=== PATIENT | female | born 1960 | race Caucasian/White ===

== ENCOUNTER 2016-08-22 17:19 | Emergency (ER) | payer MEDICARE, MEDICAID ==
[2016-08-22 17:56] VITALS: BP 98/66
--- NOTE | 2016-08-22 18:16 | UC ---
Ear Complaint HPI - HPI Summary HPI Summary: 55 yo female with a 4 days hx of bilateral ear pressure and pain as well as sinus pressure and pain no f/c no cp or sob no head ache decreased hearing - History of Current Complaint Chief Complaint: UCGeneralIllness Stated Complaint: SORE THROAT/EARS Time Seen by Provider: 08/22/16 17:49 Hx Obtained From: Patient Hx Last Menstrual Period: NA Onset/Duration: Sudden Onset, Gradual Onset Severity Initially: Mild Severity Currently: Mild Pain Intensity: 3 Pain Scale Used: 0-10 Numeric Associated Signs/Symptoms: Positive: Hearing Loss, URI Symptoms - Allergies/Home Medications Allergies/Adverse Reactions: Allergies Allergy/AdvReac Type Severity Reaction Status Date / Time Shellfish Allergy Allergy Mild "Itchy Verified 08/22/16 17:56 Throat" Clavulanic Acid AdvReac Severe "Severe Verified 08/22/16 17:56 [From Augmentin] Stomach Pain" PMH/Surg Hx/FS Hx/Imm Hx Previously Healthy: Yes Cardiovascular History Of: Denies: Hypertension, Pacemaker/ICD, Congestive Heart Failure, Atrial Fibrillation Respiratory History Of: Reports: Bronchitis - IN THE PAST Denies: COPD, Asthma GI/ History Of: Reports: Ulcer - X2, Kidney Stones Neurological History Of: Reports: Migraine - Surgical History Surgical History: Yes Surgery Procedure, Year, and Place: Six Kidney Stone Surgeries. D&C's. L BREAST TUMOR REMOVED. [place]IDNEY SURGERY [place] [facility] [place] [facility] [place] - Family History Known Family History: Positive: Hypertension - Social History Alcohol Use: None Substance Use Type: None Smoking Status (MU): Current Every Day Smoker Type: Cigarettes Amount Used/How Often: 1/2 TO 1 PACK TO A PACK A DAY Length of Time of Smoking/Using Tobacco: 30 Have You Smoked in the Last Year: Yes Household Exposure Type: Cigarettes - Immunization History Most Recent Influenza Vaccination: Not the 2014/2015 Season Review of Systems Constitutional: Negative Skin: Negative Eyes: Negative ENT: Sore Throat, Ear Ache, Nasal Discharge Respiratory: Negative Cardiovascular: Negative Gastrointestinal: Negative Genitourinary: Negative Motor: Negative Neurovascular: Negative Musculoskeletal: Negative Neurological: Negative Psychological: Negative All Other Systems Reviewed And Are Negative: Yes Physical Exam Triage Information Reviewed: Yes Appearance: Well-Appearing, No Pain Distress, Well-Nourished Vital Signs: Initial Vital Signs Temp 99 F 08/22/16 17:50 Pulse 74 08/22/16 17:50 Resp 18 08/22/16 17:50 BP 98/66 08/22/16 17:50 Pulse Ox 97 08/22/16 17:50 Vital Signs Reviewed: Yes Eyes: Positive: Conjunctiva Clear ENT: Positive: Nasal congestion, Nasal drainage, TM bulging - left retracted/ right red and bulging. Negative: Hearing grossly normal, Pharyngeal erythema, Tonsillar swelling, Tonsillar exudate, Trismus, Muffled/hoarse voice Neck: Positive: Supple, Nontender, No Lymphadenopathy Respiratory: Positive: Lungs clear, Normal breath sounds, No respiratory distress Cardiovascular: Positive: RRR, No Murmur Musculoskeletal: Positive: ROM Intact Neurological: Positive: Alert Psychological Exam: Normal Skin Exam: Normal Ear Complaint Course/Dx - Differential Dx/Diagnosis Provider Diagnoses: left otitis media. right serous otitis media. viral URI Discharge - Discharge Plan Condition: Stable Disposition: HOME Prescriptions: Amoxicillin (*) [Amoxicillin 875 MG (*)] 875 mg PO BID #20 tab Fluticasone NASAL SPRAY 50MCG* [Flonase NASAL SPRAY 50MCG*] 2 spray BOTH NARES DAILY #1 btl Patient Education Materials: Otitis Media (ED) Referrals: Roshan Erickson MD [Primary Care Provider] - 1 Week (if not better)
== END 2016-08-22 18:46 | disposition home or self-care (01) ==
LOC: UCCORT 17:19
DX: H66.92 Otitis media, unspecified, left ear (principal); H65.91 Unspecified nonsuppurative otitis media, right ear; J06.9 Acute upper respiratory infection, unspecified; F17.210 Nicotine dependence, cigarettes, uncomplicated; Z88.1 Allergy status to other antibiotic agents
CPT/HCPCS: 99212; G0463

== ENCOUNTER 2017-07-29 16:44 | Emergency (ER) | payer MEDICARE, MEDICAID ==
[2017-07-29 17:16] VITALS: BP 97/69
[2017-07-29] MEDS ORDERED: Ondansetron ODT TAB* 4 MG PO ONE (17:33)
--- NOTE | 2017-07-29 17:42 | UC ---
Respiratory Complaint HPI - HPI Summary HPI Summary: 56 yo female recently exposed to family members with flu now with 5 day hx of f/c myalgias sinus pain cough fatigue no cp or sob her BP is normally low - History of Current Complaint Chief Complaint: UCRespiratory Stated Complaint: CONGESTION, COUGH, NAUSEA Time Seen by Provider: 07/29/17 17:14 Hx Obtained From: Patient Hx Last Menstrual Period: NA Onset/Duration: Gradual Onset, Lasting Days Timing: Constant Severity Initially: Moderate Severity Currently: Moderate Pain Intensity: 7 Pain Scale Used: 0-10 Numeric Character: Cough: Nonproductive Associated Signs And Symptoms: Positive: Fever, Chills, Nasal Congestion, Hoarseness, Sinus Discomfort - Allergies/Home Medications Allergies/Adverse Reactions: Allergies Allergy/AdvReac Type Severity Reaction Status Date / Time MS Shellfish Allergy Allergy Mild "Itchy Verified 07/29/17 17:05 [Shellfish Allergy] Throat" MS Clavulanic Acid AdvReac Severe "Severe Verified 07/29/17 17:05 [From Augmentin] Stomach Pain" Home Medications: Home Medications Acetaminophen TAB* [Tylenol TAB*] 650 mg PO Q4H PRN 07/29/17 [History Confirmed 07/29/17] GuaiFENesin DM* [Robitussin DM*] 10 ml PO Q6H PRN 07/29/17 [History Confirmed ] PMH/Surg Hx/FS Hx/Imm Hx Previously Healthy: Yes Respiratory History: Bronchitis, Pneumonia - Surgical History Surgical History: Yes Surgery Procedure, Year, and Place: Six Kidney Stone Surgeries. D&C's. L BREAST TUMOR REMOVED. KIDNEY SURGERY 08/25 [facility] – [place] - Family History Known Family History: Positive: Cardiac Disease, Hypertension - Social History Alcohol Use: None Substance Use Type: None Smoking Status (MU): Heavy Every Day Tobacco Smoker Type: Cigarettes Amount Used/How Often: 1/2 PPD Length of Time of Smoking/Using Tobacco: 30 Have You Smoked in the Last Year: Yes Household Exposure Type: Cigarettes - Immunization History Most Recent Influenza Vaccination: none Review of Systems Constitutional: Fever, Chills, Fatigue Skin: Negative Eyes: Negative ENT: Sore Throat, Nasal Discharge, Sinus Congestion, Sinus Pain/Tenderness Respiratory: Cough Cardiovascular: Negative Gastrointestinal: Negative Genitourinary: Negative Motor: Negative Neurovascular: Negative Musculoskeletal: Myalgia Neurological: Negative Psychological: Negative Is Patient Immunocompromised?: No All Other Systems Reviewed And Are Negative: Yes Physical Exam Triage Information Reviewed: Yes Appearance: Well-Appearing, No Pain Distress, Well-Nourished Vital Signs: Initial Vital Signs Temp 99.2 F 07/29/17 17:07 Pulse 75 07/29/17 17:07 Resp 24 07/29/17 17:07 BP 97/69 07/29/17 17:07 Pulse Ox 97 07/29/17 17:07 Vital Signs Reviewed: Yes ENT: Positive: Hearing grossly normal, Nasal congestion, Nasal drainage, Sinus tenderness, Uvula midline Neck: Positive: Supple, Nontender Respiratory: Positive: Lungs clear, Normal breath sounds, No respiratory distress, No accessory muscle use Cardiovascular: Positive: RRR, No Murmur Musculoskeletal: Positive: ROM Intact, No Edema Neurological: Positive: Alert Psychological Exam: Normal Skin Exam: Normal UC Diagnostic Evaluation - Laboratory Pertinent Lab Values Are: WNL - influenza (-) O2 Sat by Pulse Oximetry: 97 - normal/not hypoxic - Radiology Xray Interpretation: No Acute Changes Radiology Interpretation Completed By: Radiologist Respiratory Course/Dx - Differential Dx/Diagnosis Provider Diagnoses: influenza like illness. acute sinusitis Discharge - Discharge Plan Condition: Stable Disposition: HOME Prescriptions: Amoxicillin PO (*) [Amoxicillin 875 MG (*)] 875 mg PO BID #20 tab Oseltamivir CAP* [Tamiflu CAP*] 75 mg PO BID #10 cap Patient Education Materials: Sinusitis (ED), Influenza (ED) Referrals: Roshan Erickson MD [Primary Care Provider] - 5 Days (if not better) Additional Instructions: we will treat you for an influenza like illness as well as sinusitis recheck for worsening symptoms or if not better early next week
--- NOTE | 2017-07-29 18:04 | RAD ---
Indication: Cough. 2 views of the chest are reviewed. Lung schafer appear hyperinflated. No evidence of pleural fluid, pneumonia or pneumothorax is noted. No significant change is noted since May 09, 2015. IMPRESSION: Hyperinflated lung schafer without definite pneumonia.
== END 2017-07-29 18:25 | disposition home or self-care (01) ==
LOC: UCCORT 16:44
DX: R50.9 Fever, unspecified (principal); M79.1 Myalgia; R05 Cough; R53.83 Other fatigue; R11.0 Nausea; J01.90 Acute sinusitis, unspecified; Z20.828 Contact with and (suspected) exposure to other viral communicable diseases
CPT/HCPCS: 71046; 87502; 99212; A9270-GY; G0463

== ENCOUNTER 2017-12-31 20:34 | Emergency (ER) | payer MEDICARE, MEDICAID ==
[2017-12-31 21:02] VITALS: BP 109/68
--- NOTE | 2017-12-31 21:16 | UC ---
Respiratory Complaint HPI - HPI Summary HPI Summary: 57 yo female with cough x 3 weeks now with a 4 day hx of right sided CP worsened with cough productive at time has microscopic hematuria seen by Dr. Kim today bilateral non obstructing stones no n/v/d - History of Current Complaint Chief Complaint: UCRespiratory Stated Complaint: SINUSES,CHEST OLEG,URINARY Time Seen by Provider: 12/31/17 20:59 Hx Obtained From: Patient Hx Last Menstrual Period: NA Onset/Duration: Gradual Onset, Lasting Weeks Timing: Constant Severity Initially: Mild Severity Currently: None Pain Intensity: 0 Pain Scale Used: 0-10 Numeric Character: Cough: Productive Aggravating Factors: Deep Breaths Alleviating Factors: Nothing Associated Signs And Symptoms: Positive: Nasal Congestion, Sinus Discomfort - Allergies/Home Medications Allergies/Adverse Reactions: Allergies Allergy/AdvReac Type Severity Reaction Status Date / Time amoxicillin [From Augmentin] Allergy Severe Stomach Verified 12/31/17 20:52 Cramps clavulanic acid Allergy Severe Stomach Verified 12/31/17 20:52 [From Augmentin] Cramps shellfish derived Allergy Swelling Verified 12/31/17 20:52 Of Face,Lips,& Throat PMH/Surg Hx/FS Hx/Imm Hx Previously Healthy: Yes GI/ History: Kidney Stones - Surgical History Surgical History: Yes Surgery Procedure, Year, and Place: Six Kidney Stone Surgeries. D&C's. L BREAST TUMOR REMOVED. KIDNEY SURGERY 08/25 [facility] [place] - Family History Known Family History: Positive: Cardiac Disease, Hypertension - Social History Alcohol Use: None Substance Use Type: None Smoking Status (MU): Heavy Every Day Tobacco Smoker Type: Cigarettes Amount Used/How Often: 1/2 PPD Length of Time of Smoking/Using Tobacco: 30 Have You Smoked in the Last Year: Yes Household Exposure Type: Cigarettes - Immunization History Most Recent Influenza Vaccination: none Review of Systems Constitutional: Negative Skin: Negative Eyes: Negative ENT: Negative Respiratory: Cough Cardiovascular: Chest Pain Gastrointestinal: Negative Genitourinary: Negative Motor: Negative Neurovascular: Negative Musculoskeletal: Negative Neurological: Negative Psychological: Negative Is Patient Immunocompromised?: No All Other Systems Reviewed And Are Negative: Yes Physical Exam Triage Information Reviewed: Yes Appearance: Well-Appearing, No Pain Distress, Well-Nourished Vital Signs: Initial Vital Signs Temp 98.2 F 12/31/17 20:52 Pulse 72 12/31/17 20:52 Resp 16 12/31/17 20:52 BP 109/68 12/31/17 20:52 Pulse Ox 98 12/31/17 20:52 Eyes: Positive: Conjunctiva Clear ENT: Positive: Hearing grossly normal, Nasal congestion, TMs normal, Sinus tenderness, Uvula midline. Negative: Nasal drainage, Trismus, Muffled voice, Hoarse voice Neck: Positive: Supple, Nontender, No Lymphadenopathy Respiratory: Positive: Lungs clear, No respiratory distress, No accessory muscle use. Negative: Chest non-tender - tender right lat chest Cardiovascular: Positive: RRR, No Murmur Abdomen Description: Positive: Nontender, Soft. Negative: CVA Tenderness (R), CVA Tenderness (L) Bowel Sounds: Positive: Present Musculoskeletal: Positive: ROM Intact, No Edema Neurological: Positive: Alert Psychological Exam: Normal Skin Exam: Normal UC Diagnostic Evaluation - Laboratory O2 Sat by Pulse Oximetry: 98 - normal/not hypoxic Diagnostic Studies Comment: UA: +++ RBC,+ leuks - Radiology Xray Interpretation: No Acute Changes Radiology Interpretation Completed By: ED Physician Respiratory Course/Dx - Differential Dx/Diagnosis Provider Diagnoses: 1. acute sinusitis. 2. acute bronchitis. 3. Chest wall pain. 4. hematuria Discharge - Sign-Out/Discharge Documenting (check all that apply): Patient Departure - Discharge Plan Condition: Stable Disposition: HOME Prescriptions: Amoxicillin PO (*) [Amoxicillin 875 MG (*)] 875 mg PO BID #14 tab Benzonatate CAP* [Tessalon CAP*] 100 - 200 mg PO TID PRN #28 cap PRN Reason: Cough Fluticasone NASAL SPRAY 50MCG* [Flonase NASAL SPRAY 50MCG*] 2 spray BOTH NARES BID #1 btl Patient Education Materials: Chest Pain (ED), Sinusitis (ED), Acute Bronchitis (ED), Hematuria (ED) Referrals: Roshan Erickson MD [Primary Care Provider] - 5 Days - Billing Disposition and Condition Condition: STABLE Disposition: Home
[2017-12-31] MEDS ORDERED: Amoxicillin PO (*) 500 MG CAP PO ONE (21:53)
[2017-12-31] MEDS ORDERED: Benzonatate CAP* 100 MG PO ONE (21:53)
--- NOTE | 2018-01-01 07:45 | RAD ---
INDICATION: 3 weeks cough. Now with RIGHT-sided chest pain. History of bronchitis. History of tobacco use. COMPARISON: July 29, 2017 chest radiograph and December 22, 2016 CT. TECHNIQUE: Dual energy PA and routine lateral views of the chest were obtained. REPORT: Elevated lung volumes and mild prominence of interstitial markings without change. No focal pulmonary lesion, compelling alveolar consolidation, pleural effusion, pneumothorax. The heart, pulmonary vasculature, and mediastinal contours are unremarkable. No rib or other thoracic fracture evident. IMPRESSION: #. Stigmata of obstructive lung disease. No acute pulmonary or cardiac process evident. R0
== END 2017-12-31 22:03 | disposition home or self-care (01) ==
LOC: UCCORT 20:34
DX: J01.90 Acute sinusitis, unspecified (principal); J20.9 Acute bronchitis, unspecified; R07.89 Other chest pain; R31.9 Hematuria, unspecified; F17.210 Nicotine dependence, cigarettes, uncomplicated
CPT/HCPCS: 71046; 81003; 87086; 99212; A9270-GY; G0463

== ENCOUNTER 2018-11-06 12:32 | Emergency (ER) | payer MEDICARE, MEDICAID ==
--- NOTE | 2018-11-06 12:41 | UC ---
Throat Pain/Nasal Judd HPI - HPI Summary HPI Summary: 58 yo female presents with sinus pain/pressure/congestion, post nasal drip, and dry cough for the last 3 weeks. Over the last 3-4 days her symptoms have worsened and the sinus pressure is causing her to have a headache. She has been using flonase and taking OTC cold medicine with no relief. She is still smoking daily. Denies fever, sore throat, SOB, chest pain. - History of Current Complaint Stated Complaint: SINUS PRESSURE Time Seen by Provider: 11/06/18 12:41 Hx Obtained From: Patient Hx Last Menstrual Period: NA Onset/Duration: Gradual Onset Severity: Moderate Pain Intensity: 6 Pain Scale Used: 0-10 Numeric Cough: Nonproductive - Allergies/Home Medications Allergies/Adverse Reactions: Allergies Allergy/AdvReac Type Severity Reaction Status Date / Time shellfish derived Allergy Swelling Verified 11/06/18 12:57 Of Face,Lips,& Throat clavulanic acid AdvReac Severe Stomach Verified 11/06/18 12:57 [From Augmentin] Cramps Home Medications: Home Medications Potassium Citrate TAB (NF) 30 meq PO BID 11/06/18 [History Confirmed 11/06/18] PMH/Surg Hx/FS Hx/Imm Hx - Additional Past Medical History Additional PMH: Renal disease - Surgical History Surgical History: Yes Surgery Procedure, Year, and Place: Six Kidney Stone Surgeries. D&C's. L BREAST TUMOR REMOVED. KIDNEY SURGERY 08/25 [facility] – [place] - Family History Known Family History: Positive: Cardiac Disease, Hypertension - Social History Lives: With Family Alcohol Use: None Substance Use Type: None Smoking Status (MU): Heavy Every Day Tobacco Smoker Type: Cigarettes Amount Used/How Often: 1/2 PPD Length of Time of Smoking/Using Tobacco: 30 Have You Smoked in the Last Year: Yes Household Exposure Type: Cigarettes - Immunization History Most Recent Influenza Vaccination: none Review of Systems All Other Systems Reviewed And Are Negative: Yes Constitutional: Positive: Negative Skin: Positive: Negative Eyes: Positive: Negative ENT: Positive: Nasal Discharge, Sinus Congestion, Sinus Pain/Tenderness Respiratory: Positive: Cough Cardiovascular: Positive: Negative Gastrointestinal: Positive: Negative Neurological: Positive: Headache Psychological: Positive: Negative Physical Exam - Summary Physical Exam Summary: GENERAL: NAD. WDWN. No pain distress. SKIN: No rashes, sores, lesions, or open wounds. HEENT: Head: AT/NC Eyes: EOM intact. Conjunctiva clear without inflammation or discharge. Ears: Hearing grossly normal. TMs intact, no bulging, erythema, or edema. Nose: Nasal mucosa mildly swollen and erythematous without discharge. TTP maxillary and frontal sinus. Positive post nasal drip Throat: Posterior oropharynx without exudates, erythema, or tonsillar enlargement. Uvula midline. NECK: Supple. Nontender. No lymphadenopathy. CHEST: CTAB. No r/r/w. No accessory muscle use. Breathing comfortably and in no distress. CV: RRR. Without m/r/g. Pulses intact. NEURO: Alert. PSYCH: Age appropriate behavior. Triage Information Reviewed: Yes Vital Signs: Vital Signs: Temp Pulse Resp BP Pulse Ox 98.1 F 76 18 103/79 98 11/06/18 12:55 11/06/18 12:55 11/06/18 12:55 11/06/18 12:55 11/06/18 12:55 Vital Signs Reviewed: Yes Throat Pain/Nasal Course/Dx - Course Course Of Treatment: Sinusitis Charted allergy to amoxi, clavulanic acid - but pt states this is only an adverse reaction to Augmentin (GI upset) and she has taken amoxicillin without issue. - Differential Dx/Diagnosis Provider Diagnosis: Sinusitis Discharge - Sign-Out/Discharge Documenting (check all that apply): Patient Departure All imaging exams completed and their final reports reviewed: No Studies - Discharge Plan Condition: Stable Disposition: HOME Prescriptions: Amoxicillin PO (*) [Amoxicillin 875 MG (*)] 875 mg PO BID #14 tab Benzonatate CAP* [Tessalon 100 MG CAP*] 100 mg PO TID PRN #15 cap PRN Reason: Cough guaiFENesin ER TAB [Mucinex*] 600 mg PO BID #14 tab.er Patient Education Materials: Sinusitis (ED) Referrals: Roshan Erickson MD [Primary Care Provider] - Additional Instructions: If you develop a fever, shortness of breath, chest pain, new or worsening symptoms - please call your PCP or go to the ED immediately. - Billing Disposition and Condition Condition: STABLE Disposition: Home - Attestation Statements Provider Attestation: Per institutional requirements, I have reviewed the chart, however, I was not consulted specifically or made aware of this patient by the midlevel provider. I did not personally evaluate, interact with , or disposition this patient.
[2018-11-06 13:01] VITALS: BP 103/79
== END 2018-11-06 13:03 | disposition home or self-care (01) ==
LOC: UCCORT 12:32
DX: J32.9 Chronic sinusitis, unspecified (principal); F17.210 Nicotine dependence, cigarettes, uncomplicated; Z91.013 Allergy to seafood; Z88.0 Allergy status to penicillin
CPT/HCPCS: 99212; G0463

== ENCOUNTER 2019-07-17 16:19 | Emergency (ER) | payer MEDICARE, MEDICAID ==
[2019-07-17 17:28] VITALS: BP 111/73
--- NOTE | 2019-07-17 17:43 | UC ---
UC General HPI - HPI Summary HPI Summary: Congestion and watery eyes for 1 week. Progressively worse over the past week. Bodyaches, chest cold. Coughing. Has had some N/V. No diarrhea or abdominal pain. No dysuria. Very fatigued. +Chills and subjectively warm. Has used in inhalers in the past, +smoking - but hasn't smoked in 4 days. Did get a flu shot. 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 Meds reviewed - History of Current Complaint Chief Complaint: UCGeneralIllness Stated Complaint: CHEST CONGESTION Time Seen by Provider: 07/17/19 17:30 Hx Last Menstrual Period: NA Pain Intensity: 6 - Allergy/Home Medications Allergies/Adverse Reactions: Allergies Allergy/AdvReac Type Severity Reaction Status Date / Time shellfish derived Allergy Swelling Verified 07/17/19 17:28 Of Face,Lips,& Throat clavulanic acid AdvReac Severe Stomach Verified 07/17/19 17:28 [From Augmentin] Cramps PMH/Surg Hx/FS Hx/Imm Hx Previously Healthy: Yes - Surgical History Surgical History: Yes Surgery Procedure, Year, and Place: Six Kidney Stone Surgeries. D&C's. L BREAST TUMOR REMOVED. [place]ID[place] [facility] [place] - Family History Known Family History: Positive: Cardiac Disease, Hypertension - Social History Alcohol Use: None Substance Use Type: None Smoking Status (MU): Heavy Every Day Tobacco Smoker Type: Cigarettes Amount Used/How Often: 1/2 PPD Length of Time of Smoking/Using Tobacco: 30 Have You Smoked in the Last Year: Yes Household Exposure Type: Cigarettes - Immunization History Most Recent Influenza Vaccination: none Review of Systems All Other Systems Reviewed And Are Negative: Yes Constitutional: Positive: Chills ENT: Positive: Sore Throat, Sinus Congestion Respiratory: Positive: Cough Gastrointestinal: Positive: Vomiting, Nausea Physical Exam Triage Information Reviewed: Yes Appearance: Well-Appearing Vital Signs: Initial Vital Signs Temp 98.4 F 07/17/19 17: Pulse 71 07/17/19 17:22 Resp 18 07/17/19 17:22 BP 111/73 07/17/19 17:22 Pulse Ox 99 07/17/19 17:22 Vital Signs Reviewed: Yes ENT: Positive: Pharyngeal erythema, Nasal congestion, Other - TM's dull with mild erythema worse on right Respiratory Exam: Normal Respiratory: Positive: Decreased breath sounds Cardiovascular: Positive: RRR, No Murmur Abdomen Description: Positive: Soft Course/Dx - Course Course Of Treatment: This is a 58 yr old with 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 Assessment No respiratory distress Nontoxic appearing Rapid flu: Negative CXR: Wet read - No acute findings Plan Recommend decongestant such as sudafed or an antihistamine such as zyrtec and nasal spray such as afrin for 2-3 days as directed Trial of inhaler 2 puffs every 4 hours as needed for cough - use with spacer We will contact you if radiologist finds any abnormality with your chest xray tomorrow Stop smoking If symptoms persist or worsen, recommend follow up with PCP or return to urgent care - Diagnoses Provider Diagnosis: Upper respiratory tract infection Discharge ED - Sign-Out/Discharge Documenting (check all that apply): Patient Departure All imaging exams completed and their final reports reviewed: No - Discharge Plan Condition: Fair Disposition: HOME Prescriptions: Albuterol HFA INHALER* [Ventolin HFA Inhaler*] 2 puff INH Q4H PRN #1 mdi PRN Reason: Cough Spacer/Holding Chamber (NF) [Easivent CHAMBER (NF)] 1 applic INH Q4HR PRN #1 device PRN Reason: Cough Patient Education Materials: Upper Respiratory Infection (ED) Referrals: Roshan Erickson MD [Primary Care Provider] - Additional Instructions: Recommend decongestant such as sudafed or an antihistamine such as zyrtec and nasal spray such as afrin for 2-3 days as directed Trial of inhaler 2 puffs every 4 hours as needed for cough - use with spacer We will contact you if radiologist finds any abnormality with your chest xray tomorrow Stop smoking If symptoms persist or worsen, recommend follow up with PCP or return to urgent care - Billing Disposition and Condition Condition: FAIR Disposition: Home
[2019-07-17 18:00] LABS: Influenza A Molecular Negative (Negative); Influenza B Molecular Negative (Negative)
[2019-07-17] MEDS ORDERED: Albuterol HFA INHALER* 8 gm MDI INH PRN (18:13)
[2019-07-17] MEDS ORDERED: Albuterol HFA INHALER* 8 gm MDI INH ONE (18:17)
--- NOTE | 2019-07-18 19:55 | UC ---
- Progress Note Progress Note: Final radiologist reading of chest x-ray from July 17, 2019 is no acute disease process and positive for COPD. Provider interpretation of the same date is no acute disease process therefore there is no discrepancy. Course/Dx - Diagnoses Provider Diagnoses: Upper respiratory tract infection Discharge ED - Sign-Out/Discharge Documenting (check all that apply): Patient Departure All imaging exams completed and their final reports reviewed: Yes - Discharge Plan Condition: Fair Disposition: HOME Prescriptions: Albuterol HFA INHALER* [Ventolin HFA Inhaler*] 2 puff INH Q4H PRN #1 mdi PRN Reason: Cough Spacer/Holding Chamber (NF) [Easivent CHAMBER (NF)] 1 applic INH Q4HR PRN #1 device PRN Reason: Cough Patient Education Materials: Upper Respiratory Infection (ED) Referrals: Roshan Erickson MD [Primary Care Provider] - Additional Instructions: Recommend decongestant such as sudafed or an antihistamine such as zyrtec and nasal spray such as afrin for 2-3 days as directed Trial of inhaler 2 puffs every 4 hours as needed for cough - use with spacer We will contact you if radiologist finds any abnormality with your chest xray tomorrow Stop smoking If symptoms persist or worsen, recommend follow up with PCP or return to urgent care - Billing Disposition and Condition Condition: FAIR Disposition: Home
== END 2019-07-17 18:32 | disposition home or self-care (01) ==
LOC: UCCORT 16:19
DX: J06.9 Acute upper respiratory infection, unspecified (principal); R11.2 Nausea with vomiting, unspecified; F17.210 Nicotine dependence, cigarettes, uncomplicated; Z91.013 Allergy to seafood; Z88.0 Allergy status to penicillin
CPT/HCPCS: 71046; 99212; A9270-GY; G0463